=== PATIENT | male | born 1960 | race Caucasian/White ===

== ENCOUNTER 2018-09-29 20:04 | Inpatient (IN) | payer BC ==
[2018-09-29 22:22] LABS: ABS Basophils 0 10^3/ul (0-0.2); ABS Eosinophils 0.1 10^3/ul (0-0.6); ABS Lymphocytes 2.1 10^3/ul (1.0-4.8); ABS Monocytes 0.9 10^3/ul (0-0.8); ABS Neutrophils 13.9 10^3/ul (1.5-7.7); ABS Nucleated RBC 0 10^3/ul; Eosinophil % 0.5 %; Hematocrit 45 % (36-46); Hemoglobin 15.5 g/dL (14.0-18.0); Lymphocyte % 12.6 %; Mean Corpuscular HGB Conc 35 g/dL (31-36); Mean Corpuscular Hemoglobin 30 pg (27-31); Mean Corpuscular Volume 87 fL (80-94); Mean Platelet Volume 8.7 fL (7.4-10.4); Nucleated Red Blood Cells % 0; Platelet Count 216 10^3/uL (150-450); Red Blood Count 5.17 10^6 /uL (4.18-5.48); Red Cell Distribution Width 14 % (10.5-15)
[2018-09-29 22:38] LABS: Albumin 4.1 g/dL (3.2-5.2); Albumin/Globulin Ratio 1.4 (1-3); BUN/Creatinine Ratio 20.2 (8-20); C Reactive Protein 83.15 mg/L (<8.01); Calcium 8.9 mg/dL (8.6-10.3); EGFR African American 93.6 (>60); EGFR Non-African American 77.4 (>60); Potassium 3.4 mmol/L (3.5-5.0); Total Bilirubin 1.2 mg/dL (0.2-1.0); Total Protein 7.1 g/dL (6.4-8.9)
[2018-09-29] MEDS ORDERED: HYDROmorphone INJ1* 1 MG/ML SYRINGE IV SLOW PU ONE (23:28)
[2018-09-29] MEDS ORDERED: NS 0.9% 1000 ML** 1,000 ML IV ONE (23:29)
[2018-09-29] MEDS ORDERED: Metoclopramide IV* 5 MG/ML 2 ML VIAL IV SLOW PU ONE (23:29)
[2018-09-29] MEDS ORDERED: Iohexol 300* (CONTRAST) 10 ML SDV IV ONE (23:44)
--- NOTE | 2018-09-29 23:44 | ED ---
Abdominal Pain/Male - HPI Summary HPI Summary: A 58 y/o male presents to [facility] with a chief complaint of possible pancreatitis. The patient reports severe abdominal pain since the night of 09/28, and reports this is similar pain to when he had pancreatitis in 2014. He reports that there were no stones and was unsure why he had this condition. At triage he rated his pain as a 10/10 in severity. He describes the pain as sharp and reports that his pain radiates everywhere. He denies N/V/D, he just reports pain. He reports that he had a bowel resection for diverticulitis. He denies any smoking, drinking or drug use. He reports a Hx of hypothyroidism and HTN. He denies a Hx of DM. He reports that his pain has been getting better since being in the ED. Vital signs while in room HR: 86 bpm, O2 Sat: 96, BP: 148/86 - History of Current Complaint Chief Complaint: EDAbdPain Stated Complaint: "I THINK IM HAVING ACUTE PANCREATITIS" PER PT Time Seen by Provider: 09/29/18 23:27 Hx Obtained From: Patient Onset/Duration: Sudden Onset, Lasting Days, Still Present Timing: Constant, Lasting Days Severity Initially: Severe Severity Currently: Severe Pain Intensity: 10 Pain Scale Used: 0-10 Numeric Location: Diffuse Radiates: Yes Radiates to: Other - "everywhere" Character: Sharp Aggravating Factor(s): Nothing Alleviating Factor(s): Nothing Associated Signs And Symptoms: Negative: Fever, Nausea, Vomiting, Diarrhea - Allergies/Home Medications Allergies/Adverse Reactions: Allergies Allergy/AdvReac Type Severity Reaction Status Date / Time No Known Allergies Allergy Verified 08/02/13 07:20 Home Medications: Home Medications Aspirin [Aspir-Low] 81 mg PO DAILY 09/29/18 [History Confirmed 09/29/18] Chlorthalidone 25 mg PO DAILY 09/29/18 [History Confirmed 09/29/18] Levothyroxine Sodium [Synthroid] 100 mcg PO DAILY 09/29/18 [History Confirmed ] PMH/Surg Hx/FS Hx/Imm Hx Endocrine/Hematology History: Denies: Hx Diabetes Cardiovascular History: Reports: Hx Hypertension Denies: Hx Congestive Heart Failure GI History: Reports: Other GI Disorders - diverticulitis, resected colon, 2010, perf. bowel Musculoskeletal History: Reports: Other Musculoskeletal History - shouler surgery, bilat-dislocation, rotator cuff tears Sensory History: Reports: Hx Contacts or Glasses Opthamlomology History: Reports: Hx Contacts or Glasses - Surgical History Surgery Procedure, Year, and Place: shoulder, bowel resection x 2 Infectious Disease History: No Infectious Disease History: Denies: Traveled Outside the [place] in Last 30 Days - Family History Known Family History: Negative: Blood Disorder - Social History Alcohol Use: Rare Substance Use Type: Reports: None Review of Systems Negative: Fever Positive: Abdominal Pain. Negative: Vomiting, Diarrhea, Nausea All Other Systems Reviewed And Are Negative: Yes Physical Exam - Summary Physical Exam Summary: VITAL SIGNS: Reviewed. GENERAL: Patient is a well-developed and nourished MALE who is lying comfortable in the stretcher. Patient is not in any acute respiratory distress. HEAD AND FACE: No signs of trauma. No ecchymosis, hematomas or skull depressions. No sinus tenderness. EYES: PERRLA, EOMI x 2, No injected conjunctiva, no nystagmus. EARS: Hearing grossly intact. Ear canals and tympanic membranes are within normal limits. MOUTH: Oropharynx within normal limits. NECK: Supple, trachea is midline, no adenopathy, no JVD, no carotid bruit, no c- spine tenderness, neck with full ROM. CHEST: Symmetric, no tenderness at palpation LUNGS: Clear to auscultation bilaterally. No wheezing or crackles. CVS: Regular rate and rhythm, S1 and S2 present, no murmurs or gallops appreciated. ABDOMEN: Soft, non-tender. No signs of distention. No rebound no guarding, and no masses palpated. Bowel sounds are normal. EXTREMITIES: FROM in all major joints, no edema, no cyanosis or clubbing. NEURO: Alert and oriented x 3. No acute neurological deficits. Speech is normal and follows commands. SKIN: Dry and warm Triage Information Reviewed: Yes Vital Signs On Initial Exam: Initial Vitals Temp Pulse Resp BP Pulse Ox 98.1 F 74 20 143/95 98 09/29/18 20:22 09/29/18 20:22 09/29/18 20:22 09/29/18 20:22 09/29/18 20:22 Vital Signs Reviewed: Yes Diagnostics - Vital Signs Vital Signs Temp Pulse Resp BP Pulse Ox 09/29/18 23:35 24 09/29/18 23:26 75 23 153/101 97 03/18/19 23:25 21 09/29/18 21:37 77 20 121/95 97 09/29/18 20:22 98.1 F 74 20 143/95 98 - Laboratory Lab Results: Lab Results 09/29/18 09/29/18 09/29/18 Range/Units 22:14 22:15 22:15 WBC 17.0 H (3.5-10.8) 10^3/uL RBC 5.17 (4.18-5.48) 10^6 /uL Hgb 15.5 (14.0-18.0) g/dL Hct 45 (36-46) % MCV 87 (80-94) fL MCH 30 (27-31) pg MCHC 35 (31-36) g/dL RDW 14 (10.5-15) % Plt Count 216 (150-450) 10^3/uL MPV 8.7 (7.4-10.4) fL Neut % (Auto) 81.6 % Lymph % (Auto) 12.6 % [place]acken % (Auto) 5.0 % Eos % (Auto) 0.5 % Baso % (Auto) 0.3 % Absolute Neuts (auto) 13.9 H (1.5-7.7) 10^3/ul Absolute Lymphs (auto) 2.1 (1.0-4.8) 10^3/ul Absolute Monos (auto) 0.9 H (0-0.8) 10^3/ul Absolute Eos (auto) 0.1 (0-0.6) 10^3/ul Absolute Basos (auto) 0 (0-0.2) 10^3/ul Absolute Nucleated RBC 0 10^3/ul Nucleated RBC % 0 Sodium 132 L (135-145) mmol/L Potassium 3.4 L (3.5-5.0) mmol/L Chloride 94 L (101-111) mmol/L Carbon Dioxide 28 (22-32) mmol/L Anion Gap 10 (2-11) mmol/L BUN 20 (6-24) mg/dL Creatinine 0.99 (0.67-1.17) mg/dL Est GFR ( Amer) 93.6 (>60) Est GFR (Non-Af Amer) 77.4 (>60) BUN/Creatinine Ratio 20.2 H (8-20) Glucose 137 H (70-100) mg/dL Lactic Acid 1.2 (0.5-2.0) mmol/L Calcium 8.9 (8.6-10.3) mg/dL Total Bilirubin 1.20 H (0.2-1.0) mg/dL AST 20 (13-39) U/L ALT 20 (7-52) U/L Alkaline Phosphatase 52 (34-104) U/L C-Reactive Protein 83.15 H (<8.01) mg/L Total Protein 7.1 (6.4-8.9) g/dL Albumin 4.1 (3.2-5.2) g/dL Globulin 3.0 (2-4) g/dL Albumin/Globulin Ratio 1.4 (1-3) Lipase 2272 H (11.0-82.0) U/L Result Diagrams: 09/30/18 02:53 09/30/18 02:53 Lab Statement: Any lab studies that have been ordered have been reviewed, and results considered in the medical decision making process. - CT abdomen/pelvis CT Interpretation Completed By: Radiologist Summary of CT Findings: 1. Acute pancreatitis. 2. Small fat containing umbilical hernia. 3. Status post partial sigmoid resection surgery. 4. Colonic diverticulosis. ED physician has reviewed this imaging report. - EKG 21:39 Cardiac Rate: NL - 75 bpm EKG Rhythm: Sinus Rhythm Summary of EKG Findings: Normal sinus rhythm at 75 bpm. Nonspecific T-wave changes in inferior leads. Abdominal Pain Male Course/Dx - Course Course Of Treatment: A 58 y/o male presents to [facility] with a chief complaint of possible pancreatitis. The patient reports severe abdominal pain since the night of 09/28/18, and reports this is similar pain to when he had pancreatitis in 2014. He reports that there were no stones and was unsure why he had this condition. At triage he rated his pain as a 10/10 in severity. He describes the pain as sharp and reports that his pain radiates everywhere. He denies N/V/D, he just reports pain. He reports that he had a bowel resection for diverticulitis. He denies any smoking, drinking or drug use. He reports a Hx of hypothyroidism and HTN. He denies a Hx of DM. He reports that his pain has been getting better since being in the ED. The physical exam was unremarkable. In the ED course the patient was given Iohexol (contrast) IV, Dilaudid IV and Reglan IV. Abdomen/pelvis CT impression: 1. Acute pancreatitis. 2. Small fat containing umbilical hernia. 3. Status post partial sigmoid resection surgery. 4. Colonic diverticulosis. Bloodwork and chemistries obtained. Lipase elevated at 2272. Case discussed with Dr. Flower, hospitalist, who accpeted the patient for admission. The patient is agreeable with this plan. - Diagnoses Provider Diagnoses: Acute pancreatitis - Provider Notifications Discussed Care Of Patient With: Igor Flower Time Discussed With Above Provider: 01:48 Instructed by Provider To: Admit As Inpatient Discharge - Sign-Out/Discharge Documenting (check all that apply): Patient Departure - admit Patient Received Moderate/Deep Sedation with Procedure: No - Discharge Plan Condition: Fair Disposition: ADMITTED TO [facility] - Billing Disposition and Condition Condition: FAIR Disposition: Admitted to [facility] - Attestation Statements Document Initiated by Gina: Yes Documenting Scribe: Steve Dietrich Provider For Whom Gina is Documenting (Include Credential): Kelby Husain MD Scribe Attestation: Steve August scribed for Kelby Husain MD on 09/30/18 at 0616. Scribe Documentation Reviewed: Yes Provider Attestation: The documentation as recorded by the Steve bravo accurately reflects the service I personally performed and the decisions made by me, Kelyb Husain MD Status of Scribe Document: Viewed
[2018-09-30] MEDS ORDERED: HYDROmorphone INJ1* 1 MG/ML SYRINGE IV ONE (02:09)
[2018-09-30 03:05] LABS: ABS Basophils 0.1 10^3/ul (0-0.2); ABS Eosinophils 0.1 10^3/ul (0-0.6); ABS Lymphocytes 1.9 10^3/ul (1.0-4.8); ABS Monocytes 0.9 10^3/ul (0-0.8); ABS Neutrophils 13.6 10^3/ul (1.5-7.7); ABS Nucleated RBC 0 10^3/ul; Eosinophil % 0.5 %; Hematocrit 42 % (36-46); Hemoglobin 14.4 g/dL (14.0-18.0); Lymphocyte % 11.4 %; Mean Corpuscular HGB Conc 34 g/dL (31-36); Mean Corpuscular Hemoglobin 30 pg (27-31); Mean Corpuscular Volume 87 fL (80-94); Nucleated Red Blood Cells % 0; Platelet Count 192 10^3/uL (150-450); Red Blood Count 4.84 10^6 /uL (4.18-5.48); Red Cell Distribution Width 13 % (10.5-15); White Blood Count 16.6 10^3/uL (3.5-10.8)
[2018-09-30 03:18] LABS: Albumin 3.7 g/dL (3.2-5.2); Albumin/Globulin Ratio 1.4 (1-3); BUN/Creatinine Ratio 21.1 (8-20); Calcium 8.2 mg/dL (8.6-10.3); EGFR African American 104.5 (>60); EGFR Non-African American 86.4 (>60); Globulin 2.6 g/dL (2-4); HDL Cholesterol 44.9 mg/dL; Magnesium 1.7 mg/dL (1.9-2.7); Total Bilirubin 1.1 mg/dL (0.2-1.0); Total Protein 6.3 g/dL (6.4-8.9)
[2018-09-30] MEDS ORDERED: Magnesium Sulfate 2 GM IV* 2 GM/50 ML BAG IVPB ONE ×2 (03:33→08:28)
[2018-09-30] MEDS: Lactated Ringers 1000 ML Bag* 1,000 ML IV SCH ×3 (04:42→17:48)
[2018-09-30] MEDS: HYDROmorphone INJ1* 1 MG/ML SYRINGE IV SLOW PU PRN ×6 (05:00→20:17)
[2018-09-30] MEDS: Levothyroxine TAB* 100 MCG TAB PO SCH (06:06)
[2018-09-30] MEDS: KCL 20 MEQ/100 ML IVPREMIX* 20 MEQ/100 ML BAG IV SCH ×3 (06:07→15:01)
--- NOTE | 2018-09-30 06:07 | HP ---
HISTORY AND PHYSICAL: DATE OF ADMISSION: 09/30/18 ADMITTING PROVIDER: Igor Flower MD PRIMARY CARE PROVIDER: Dr. Coreas. CHIEF COMPLAINT: Abdominal pain (epigastric). HISTORY OF PRESENT ILLNESS: Erwin Andrade is a 58-year-old male with past medical history of hypertension; hypothyroidism; episode of pancreatitis in 2013 of undetermined etiology; severe diverticulosis & diverticulitis complicated by rupture, status post left hemicolectomy; morbid obesity (BMI of 40.6). He was in his usual state of health until 09/28/18, 2 nights prior to admission, at around 11 p.m. he started to develop a dull aching pain in his epigastric region that radiated to the left side of his abdomen and which felt very similar to his episode in 2013 of pancreatitis. He stopped eating most everything after that point except for some apple juice 09/29. Pain was progressively worse yesterday to the point of being "brutally" painful. He took Motrin 400 mg t.i.d. without relief, Zantac without relief and presented to [facility] Emergency Room yesterday, and while in the waiting room took another 400mg Motrin. Here, he had a CT abdomen and pelvis with IV contrast, which showed acute pancreatitis, a small fat containing umbilical hernia, status post partial sigmoid resection surgery and colonic diverticulosis and his lipase was elevated to 2272, CRP was 83, white count was 17.0. He was afebrile. He has received Dilaudid 1 mg IV x2 doses in the emergency room and 1 L of normal saline bolus. He was referred to hospitalist service for admission for acute pancreatitis of undermined etiology. He very rarely drinks alcohol at work social functions. PAST MEDICAL HISTORY: 1. Hypertension. 2. Obesity with BMI of 40.6. 3. Diverticulitis and diverticulosis, status post left hemicolectomy in 2008 to 2009 approximately. 4. Hypothyroidism. 5. Pancreatitis in 2013. MEDICATIONS: Include: 1. Aspirin 81 mg daily. 2. Lisinopril 40 mg daily. 3. Levothyroxine 100 mcg p.o. daily. 4. Chlorthalidone 25 mg p.o. daily. ALLERGIES: No known drug allergies. FAMILY HISTORY: His father from colon cancer at age 70, also had history of gallstones. Mother had a history of CVA, hypertension. Sister has hypothyroidism. SOCIAL HISTORY: The patient is a never smoker. He denies any significant alcohol use. He has a glass of wine extremely rarely with his work functions. 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 He does not do any other drugs. His , Miroslava, is his medical surrogate. He desires to be a full code. REVIEW OF SYSTEMS: Complete 14-point review of systems is negative except as per HPI. He denies any chest pain, shortness of breath, skin changes, dyspnea on exertion, headaches, nausea, vomiting, diarrhea, constipation, blood in his bowel movements, dark tarry bowel movements. His last colonoscopy was in the fall of 2017 that was clean (Through [employer] and likely Dr. Tena Pratt). PHYSICAL EXAMINATION GENERAL APPEARANCE: No acute distress. VITAL SIGNS: Temperature 98.1, heart rate 74, respiratory rate 20, satting 96% on room air, blood pressure 143/95. HEENT: Normocephalic, atraumatic. Pupils are equal, round, and reactive to light. Extraocular motions are intact. No scleral icterus. NECK: Supple. No cervical lymphadenopathy. LUNGS: Clear to auscultation bilaterally with no wheezing, rales, or rhonchi. CARDIOVASCULAR: Regular rate and rhythm. No murmurs, rubs, or gallops. ABDOMEN: Soft, mildly tender in the epigastric and left upper quadrant. Negative Matta's signs. No rebound, no guarding. EXTREMITIES: Warm, well perfused. No peripheral edema. SKIN: No lesions or rashes. NEURO: Cranial nerves II through XII intact. Moving all extremities. DIAGNOSTIC STUDIES/LAB DATA: White count 17.0, hemoglobin 15.5, hematocrit 45 , platelets 216. Sodium 132, potassium 3.4, chloride 94, BUN 20, creatinine 0.99, glucose 137. Lactic acid 1.2. Total bili 1.20, AST 20, ALT 20, alk phos 52. CRP 83.1. Albumin 4.1. Lipase 2272. Imaging: CT abdomen and pelvis with IV contrast demonstrated acute pancreatitis , small fat containing umbilical hernia, status post partial sigmoid resection surgery and colonic diverticulosis. EKG demonstrated normal sinus rhythm. T wave inversion in lead III, poor R wave progression, no ST elevations or depressions. ASSESSMENT AND PLAN: Erwin Andrade is a 58-year-old male with past medical history of episode of pancreatitis of undermined etiology, obesity with BMI of 40.6, hypertension, diverticulosis, is notably on chlorthalidone presenting with episode of acute pancreatitis with CT scan not showing any evidence of gallbladder pathology. 1. Acute Pancreatitis: Undetermined Etiology. His lipase is 2272. He has got 1 L of normal saline. I am going to put him on lactated Ringer's at 200 cc an hour for the next 10 hours at least. Control his pain with Dilaudid 1 mg IV q.3 hours. Put him n.p.o. to get an ultrasound of his right upper quadrant to further assess his gallbladder and to make sure the CT scan did not miss anything. It is possible that he passed a small stone transiently but further workup to rule out other causes of pancreatitis is warranted including rule out autoimmune pancreatitis. We will get a IgG4 level and CAROL. I will recheck his triglycerides - It was notably normal at 46 back on 07/28/13 during previous episode. I will hold his chlorthalidone, which is class III agent in terms of risk for development of drug-induced pancreatitis, which he has been on since 2008. Repeat a lipase and CBC and complete metabolic panel in the morning. 2. Hyperglycemia in setting of morbid obesity. He does have some hyperglycemia here to 137. I am going to check a hemoglobin A1c to rule out any development of prediabetes or diabetes. 3. Hypertension. As noted above hold his chlorthalidone. He is normotensive here and at risk for third spacing fluid in setting of pancreatitis. We will monitor his BPs closely and add back his home lisinopril as needed. 4. Hypothyroidism. Continue levothyroxine. Follow up on his UA, which has been ordered. He is nontoxic appearing. He is being admitted as inpatient status. He is a full code. Medical surrogate is his , Miroslava Andrade. He has had gastroenterology consultation in the past back in [address] Caal. We could consider same again depending on clinical course. [id number]/[facility] #: [id number] [facility]
[2018-09-30 08:09] LABS: Urine Appearance Clear; Urine Bacteria Absent (Absent); Urine Bilirubin Negative (Negative); Urine Blood 2+ (Negative); Urine Color Yellow; Urine Glucose Negative (Negative); Urine Ketones 1+ (Negative); Urine Nitrite Negative (Negative); Urine Protein Negative (Negative); Urine Red Blood Cell 3+(>10/hpf) (Absent); Urine Specific Gravity 1.035 (1.010-1.030); Urine Urobilinogen Negative (Negative); Urine White Blood Cell Trace(0-5/hpf) (Absent)
[2018-09-30] MEDS ORDERED: KCL 20 MEQ/100 ML IVPREMIX* 20 MEQ/100 ML BAG IV SCH (09:00)
[2018-09-30] MEDS: Aspirin EC TAB* 81 MG TAB.EC PO SCH (11:21)
[2018-09-30] MEDS: Ondansetron INJ* 2 MG/ML VIAL IV PRN ×2 (11:51→20:18)
--- NOTE | 2018-09-30 16:09 | PN ---
Subjective Date of Service: 09/30/18 Interval History: Pt states that he is feeling better. He has mid-epigastric and LUQ pain. His pain is well-controlled Dilauded; he rates it at 1-2/10. He states that meds start to wear off appx 30min before his next dose is due. He has had no food since Saturday, 5pm when the pain started. Saturday pain got worse and he went to ER. he had pancreatitis once before in 2013, etiology unknown. Pt denies recent alcohol use. Currently, pt denies vomiting, diarrhea. He is occasionally nauseas. Denies cough, fever, changes in urination or bowl movements. Objective Active Medications: Aspirin (Aspirin Ec Tab*) 81 mg PO DAILY SCHn Hydromorphone HCl (Dilaudid Inj1s*) 1 mg IV SLOW PU Q3H PRN Lactated Ringer's (Lactated Ringers 1000 Ml Bag*) 1,000 mls @ 125 mls/hr IV PER RATE KATHIA Levothyroxine Sodium (Synthroid Tab*) 100 mcg PO 0600 KATHIA Ondansetron HCl (Zofran Inj*) 4 mg IV Q8H PRN Vital Signs: Temp Pulse Resp BP Pulse Ox 99.0 F 80 15 133/77 96 09/30/18 11:00 09/30/18 11:00 09/30/18 15:48 09/30/18 11:00 09/30/18 11:00 Oxygen Devices in Use Now: None Appearance: Pt is laying flat in bed. He appears comfortable and in no acute distress. Eyes: No Scleral Icterus, PERRLA Ears/Nose/Mouth/Throat: NL Teeth, Lips, Gums, Mucous Membranes Moist Neck: NL Appearance and Movements; NL JVP, Trachea Midline Respiratory: Symmetrical Chest Expansion and Respiratory Effort, Clear to Auscultation Cardiovascular: NL Sounds; No Murmurs; No JVD, RRR, No Edema Abdominal: - - Midline colectomy scar below umbilicus intact. Abdomen nondistended without Frankie's, Meza Ceja signs. BS hypoactive in all quadrants. Abdomen is tender to palpation at epigastric and LUQ. Lymphatic: No Cervical Adenopathy Extremities: No Edema, No Clubbing, Cyanosis Neurological: Alert and Oriented x 3 Result Diagrams: 09/30/18 02:53 09/30/18 02:53 Additional Lab and Data: Lab Results 09/29/18 09/29/18 09/29/18 Range/Units 22:14 22:15 22:15 WBC 17.0 H (3.5-10.8) 10^3/uL RBC 5.17 (4.18-5.48) 10^6 /uL Hgb 15.5 (14.0-18.0) g/dL Hct 45 (36-46) % MCV 87 (80-94) fL MCH 30 (27-31) pg MCHC 35 (31-36) g/dL RDW 14 (10.5-15) % Plt Count 216 (150-450) 10^3/uL MPV 8.7 (7.4-10.4) fL Neut % (Auto) 81.6 % Lymph % (Auto) 12.6 % [place]osh[place] % (Auto) 5.0 % Eos % (Auto) 0.5 % Baso % (Auto) 0.3 % Absolute Neuts (auto) 13.9 H (1.5-7.7) 10^3/ul Absolute Lymphs (auto) 2.1 (1.0-4.8) 10^3/ul Absolute Monos (auto) 0.9 H (0-0.8) 10^3/ul Absolute Eos (auto) 0.1 (0-0.6) 10^3/ul Absolute Basos (auto) 0 (0-0.2) 10^3/ul Absolute Nucleated RBC 0 10^3/ul Nucleated RBC % 0 Sodium 132 L (135-145) mmol/L Potassium 3.4 L (3.5-5.0) mmol/L Chloride 94 L (101-111) mmol/L Carbon Dioxide 28 (22-32) mmol/L Anion Gap 10 (2-11) mmol/L BUN 20 (6-24) mg/dL Creatinine 0.99 (0.67-1.17) mg/dL Est GFR ( Amer) 93.6 (>60) Est GFR (Non-Af Amer) 77.4 (>60) BUN/Creatinine Ratio 20.2 H (8-20) Glucose 137 H (70-100) mg/dL Lactic Acid 1.2 (0.5-2.0) mmol/L Calcium 8.9 (8.6-10.3) mg/dL Total Bilirubin 1.20 H (0.2-1.0) mg/dL AST 20 (13-39) U/L ALT 20 (7-52) U/L Alkaline Phosphatase 52 (34-104) U/L C-Reactive Protein 83.15 H (<8.01) mg/L Total Protein 7.1 (6.4-8.9) g/dL Albumin 4.1 (3.2-5.2) g/dL Globulin 3.0 (2-4) g/dL Albumin/Globulin Ratio 1.4 (1-3) Lipase 2272 H (11.0-82.0) U/L Assess/Plan/Problems-Billing Assessment: Pt is a 58 yom with PMHx obesity, HTN, diverticulitis/losis s/p L hemicolectomy , hypothyroid who presented to ER with pancreatitis, unknown etiology. - Patient Problems (1) Pancreatitis Comment: -Abd pain well controlled with current medications -Leukocytosis without fever or other s/s infection, ? third spacing; continue to monitor -Lipids WNL, pending IGG4, CAROL -Zofran prn nausea -Continue IVF, dilaudid (2) Electrolyte abnormality Comment: -K and Mg repleted -EKG shows NSR with borderline T abnormalities; pt asymptomatic -Continue to monitor (3) Hyperglycemia Comment: -HA1C 6.5 -Pt would like diabetic education (ordered) for management and refuses metformin at this time (4) Hypertension Comment: -Normotensive -Home medication Chlorthalidone held, d/t Class III agent risk for pancreatitis -Continue home med Losartan if needed (5) Hypothyroid Comment: -Continue levothyroxine (6) DVT prophylaxis Comment: -TEDs ordered (7) Full code status Status and Disposition: Inpatient. Discharge when stable.
[2018-09-30] MEDS: Acetaminophen TAB* 325 MG PO PRN (20:18)
[2018-10-01] MEDS: HYDROmorphone INJ1* 1 MG/ML SYRINGE IV SLOW PU PRN ×10 (01:21→22:36)
[2018-10-01] MEDS: Lactated Ringers 1000 ML Bag* 1,000 ML IV SCH ×3 (01:55→16:37)
[2018-10-01] MEDS: Ondansetron INJ* 2 MG/ML VIAL IV PRN (03:39)
[2018-10-01] MEDS: Levothyroxine TAB* 100 MCG TAB PO SCH (06:02)
[2018-10-01 06:42] LABS: Hematocrit 41 % (36-46); Hemoglobin 14.1 g/dL (14.0-18.0); Mean Corpuscular HGB Conc 34 g/dL (31-36); Mean Corpuscular Hemoglobin 30 pg (27-31); Mean Corpuscular Volume 87 fL (80-94); Mean Platelet Volume 8.1 fL (7.4-10.4); Platelet Count 171 10^3/uL (150-450); Red Blood Count 4.73 10^6 /uL (4.18-5.48); Red Cell Distribution Width 14 % (10.5-15); White Blood Count 23.1 10^3/uL (3.5-10.8)
[2018-10-01 07:05] LABS: BUN/Creatinine Ratio 19.5 (8-20); Calcium 7.7 mg/dL (8.6-10.3); EGFR African American 108.7 (>60); EGFR Non-African American 89.8 (>60); Magnesium 1.8 mg/dL (1.9-2.7); Potassium 3.2 mmol/L (3.5-5.0)
[2018-10-01] MEDS ORDERED: Lactated Ringers 1000 ML Bag* 1,000 ML IV SCH (08:14)
[2018-10-01 08:34] LABS: ABS Basophils 0.1 10^3/ul (0-0.2); ABS Eosinophils 0.1 10^3/ul (0-0.6); ABS Monocytes 1.8 10^3/ul (0-0.8); ABS Neutrophils 20.1 10^3/ul (1.5-7.7)
[2018-10-01 08:37] LABS: Albumin 3.5 g/dL (3.2-5.2); Albumin/Globulin Ratio 1.4 (1-3); Globulin 2.5 g/dL (2-4); Indirect Bilirubin 0.7 mg/dL (0.3-1.0); Total Bilirubin 1.1 mg/dL (0.2-1.0)
[2018-10-01 08:39] LABS: Immature Granulocytes 5 % (0-9); Lymphocytes % 4 %; Monocytes % 11 %; Neutrophil % 79 %; Variant Lymph % 1 % (0-6)
[2018-10-01 08:47] LABS: ABS Neutrophils 19.4 10^3/ul (1.5-7.7)
[2018-10-01] MEDS: Aspirin EC TAB* 81 MG TAB.EC PO SCH (09:06)
[2018-10-01] MEDS: KCL 20 MEQ/100 ML IVPREMIX* 20 MEQ/100 ML BAG IV SCH ×3 (09:06→17:41)
[2018-10-01] MEDS: Ciprofloxacin 400MG IVPREMIX(* 400 MG/200 ML BAG IVPB SCH ×2 (11:30→22:29)
[2018-10-01] MEDS: metroNIDAZOLE IV 500 MG/100ML* 500 MG/100 ML BAG IVPB SCH ×2 (12:47→18:29)
[2018-10-01] MEDS: PROCHLORPERAZINE INJ 5 MG/ML 2 ML VIAL IV PRN ×2 (14:08→20:32)
--- NOTE | 2018-10-01 15:43 | PN ---
Subjective Date of Service: 10/01/18 Interval History: Pt states that he continues to have abdominal pain, but is doing ok. States pain starts to worsen right before pain medication is due, and he is requiring pain medication every time it is due. He states that his urine output is average. He denies recent BM. He does c/o occasional productive cough, but states that this only occurs in the a.m. Torrington's score is 3 with 15% predicted mortality BISAP score 0 with <1% risk of mortality Objective Active Medications: Acetaminophen (Tylenol Tab*) 650 mg PO Q6H PRN Aspirin (Aspirin Ec Tab*) 81 mg PO DAILY [facility] Docusate Sodium (Colace Cap*) 100 mg PO BID PRN Hydromorphone HCl (Dilaudid Inj1s*) 1 mg IV SLOW PU Q2H PRN Lactated Ringer's (Lactated Ringers 1000 Ml Bag*) 1,000 mls @ 200 mls/hr IV PER RATE [facility] Ciprofloxacin/Dextrose (Cipro 400 Mg Ivpremix(*)) 400 mg in 200 mls @ 200 mls/ hr IVPB Q12H [facility] Metronidazole/Sodium Chloride (Flagyl 500 Mg Ivpb*) 500 mg in 100 mls @ 100 mls /hr IVPB Q8H [facility] Levothyroxine Sodium (Synthroid Tab*) 100 mcg PO 0600 [facility] Prochlorperazine Edisylate (Compazine Inj*) 2.5 mg IV Q6H PRN Senna (Senokot Tab*) 1 tab PO DAILY PRN Vital Signs: Temp Pulse Resp BP Pulse Ox 99.4 F 85 18 131/96 98 10/01/18 15:21 10/01/18 15:21 10/01/18 15:21 10/01/18 15:21 10/01/18 15:21 Oxygen Devices in Use Now: None Appearance: Pt is laying in bed. He does not appear acutely ill, and he is in no acute distress. Eyes: No Scleral Icterus, PERRLA Ears/Nose/Mouth/Throat: NL Teeth, Lips, Gums, - - Mucous membranes dry Neck: NL Appearance and Movements; NL JVP, Trachea Midline Respiratory: Symmetrical Chest Expansion and Respiratory Effort, Clear to Auscultation, - - Without wheeze, rales, rhonchi Cardiovascular: NL Sounds; No Murmurs; No JVD, RRR, No Edema Abdominal: No Hepatosplenomegaly, - - BS in all quadrants; negative for ella's , arriaga salazar signs; epigastric and LUQ TTP. Without distension Extremities: No Edema, No Clubbing, Cyanosis Neurological: Alert and Oriented x 3 Result Diagrams: 10/01/18 06:34 10/01/18 06:34 Additional Lab and Data: Lab Results 09/29/18 09/29/18 09/29/18 Range/Units 22:14 22:15 22:15 WBC 17.0 H (3.5-10.8) 10^3/uL RBC 5.17 (4.18-5.48) 10^6 /uL Hgb 15.5 (14.0-18.0) g/dL Hct 45 (36-46) % MCV 87 (80-94) fL MCH 30 (27-31) pg MCHC 35 (31-36) g/dL RDW 14 (10.5-15) % Plt Count 216 (150-450) 10^3/uL MPV 8.7 (7.4-10.4) fL Neut % (Auto) 81.6 % Lymph % (Auto) 12.6 % [place] % (Auto) 5.0 % Eos % (Auto) 0.5 % Baso % (Auto) 0.3 % Absolute Neuts (auto) 13.9 H (1.5-7.7) 10^3/ul Absolute Lymphs (auto) 2.1 (1.0-4.8) 10^3/ul Absolute Monos (auto) 0.9 H (0-0.8) 10^3/ul Absolute Eos (auto) 0.1 (0-0.6) 10^3/ul Absolute Basos (auto) 0 (0-0.2) 10^3/ul Absolute Nucleated RBC 0 10^3/ul Nucleated RBC % 0 Sodium 132 L (135-145) mmol/L Potassium 3.4 L (3.5-5.0) mmol/L Chloride 94 L (101-111) mmol/L Carbon Dioxide 28 (22-32) mmol/L Anion Gap 10 (2-11) mmol/L BUN 20 (6-24) mg/dL Creatinine 0.99 (0.67-1.17) mg/dL Est GFR ( Amer) 93.6 (>60) Est GFR (Non-Af Amer) 77.4 (>60) BUN/Creatinine Ratio 20.2 H (8-20) Glucose 137 H (70-100) mg/dL Lactic Acid 1.2 (0.5-2.0) mmol/L Calcium 8.9 (8.6-10.3) mg/dL Total Bilirubin 1.20 H (0.2-1.0) mg/dL AST 20 (13-39) U/L ALT 20 (7-52) U/L Alkaline Phosphatase 52 (34-104) U/L C-Reactive Protein 83.15 H (<8.01) mg/L Total Protein 7.1 (6.4-8.9) g/dL Albumin 4.1 (3.2-5.2) g/dL Globulin 3.0 (2-4) g/dL Albumin/Globulin Ratio 1.4 (1-3) Lipase 2272 H (11.0-82.0) U/L Microbiology and Other Data: Microbiology 09/30/18 07:50 Urine Culture - Final Urine No Growth (<1,000 CFU/mL) Assess/Plan/Problems-Billing Assessment: Pt is a 58 yom with PMHx obesity, HTN, diverticulitis/losis s/p L hemicolectomy , hypothyroid who presented to ER with pancreatitis, unknown etiology. - Patient Problems (1) Pancreatitis Comment: -Abd pain controlled with current medications -Leukocytosis plus intermittend low grade fever; starting Cipro + Flagyl 2018 -Lipids WNL, pending IGG4, CAROL -Zofran d/c'd d/t assoc with QT prolongation with use of Cipro and Zofran plus frequent hypokalemia. Compazine prn nausea -Continue IVF at 200cc/h, dilaudid (2) Electrolyte abnormality Comment: -K and Mg repleted -EKG shows NSR with borderline T abnormalities 09/30/2018; pt asymptomatic -Continue to monitor (3) Constipation Comment: -Pt c/o constipation today, requesting rx -Colace, Senna ordered (4) Hypertension Comment: -Normotensive with SBP 120-130's -Home medication Chlorthalidone held, d/t Class III agent risk for pancreatitis -Continue home med Losartan if needed (5) Hyperglycemia Comment: -HA1C 6.5 -Pt would like diabetic education (ordered) for management and refuses metformin at this time (6) Hypothyroid Comment: -Continue levothyroxine (7) DVT prophylaxis Comment: -TEDs ordered (8) Full code status Status and Disposition: Inpatient. Discharge when stable.
[2018-10-01] MEDS: Docusate CAP* 100 MG PO PRN ×3 (16:31→20:32)
[2018-10-01] MEDS: Senna TAB PO PRN ×2 (16:31→16:34)
[2018-10-01] MEDS: Acetaminophen TAB* 325 MG PO PRN (20:28)
[2018-10-02] MEDS: HYDROmorphone INJ1* 1 MG/ML SYRINGE IV SLOW PU PRN ×9 (00:53→21:46)
[2018-10-02] MEDS: metroNIDAZOLE IV 500 MG/100ML* 500 MG/100 ML BAG IVPB SCH ×2 (01:00→10:57)
[2018-10-02] MEDS: PROCHLORPERAZINE INJ 5 MG/ML 2 ML VIAL IV PRN (02:27)
[2018-10-02] MEDS: Levothyroxine TAB* 100 MCG TAB PO SCH (05:09)
[2018-10-02 06:41] LABS: Hematocrit 38 % (36-46); Hemoglobin 12.9 g/dL (14.0-18.0); Mean Corpuscular HGB Conc 34 g/dL (31-36); Mean Corpuscular Hemoglobin 30 pg (27-31); Mean Corpuscular Volume 89 fL (80-94); Mean Platelet Volume 8.9 fL (7.4-10.4); Platelet Count 155 10^3/uL (150-450); Red Blood Count 4.32 10^6 /uL (4.18-5.48); Red Cell Distribution Width 13 % (10.5-15); White Blood Count 22.6 10^3/uL (3.5-10.8)
[2018-10-02 06:42] LABS: ABS Basophils 0 10^3/ul (0-0.2); ABS Eosinophils 0.1 10^3/ul (0-0.6); ABS Lymphocytes 0.9 10^3/ul (1.0-4.8); ABS Neutrophils 19.6 10^3/ul (1.5-7.7); ABS Nucleated RBC 0 10^3/ul; Eosinophil % 0.4 %; Lymphocyte % 4.2 %; Nucleated Red Blood Cells % 0
[2018-10-02 06:47] LABS: Albumin 3.1 g/dL (3.2-5.2); Albumin/Globulin Ratio 1.2 (1-3); Calcium 7.5 mg/dL (8.6-10.3); EGFR African American 107.3 (>60); EGFR Non-African American 88.6 (>60); Globulin 2.5 g/dL (2-4); Magnesium 1.8 mg/dL (1.9-2.7); Potassium 3.3 mmol/L (3.5-5.0); Total Bilirubin 1.1 mg/dL (0.2-1.0); Total Protein 5.6 g/dL (6.4-8.9)
[2018-10-02] MEDS: Aspirin EC TAB* 81 MG TAB.EC PO SCH (08:28)
[2018-10-02] MEDS: Ciprofloxacin 400MG IVPREMIX(* 400 MG/200 ML BAG IVPB SCH (10:18)
[2018-10-02] MEDS: Lactated Ringers 1000 ML Bag* 1,000 ML IV SCH ×3 (12:45→21:50)
[2018-10-02] MEDS: KCL 20 MEQ/100 ML IVPREMIX* 20 MEQ/100 ML BAG IV SCH ×2 (12:45→16:55)
--- NOTE | 2018-10-02 16:09 | PN ---
Subjective Date of Service: 10/02/18 Interval History: Feels better since admission but abdominal pain continues small BM and +flatus no N/V not OOB yet Objective Active Medications: Acetaminophen (Tylenol Tab*) 650 mg PO Q6H PRN PRN Reason: FEVER Last Admin: 10/01/18 20:28 Dose: 650 mg Aspirin (Aspirin Ec Tab*) 81 mg PO DAILY [facility] Last Admin: 10/02/18 08:28 Dose: 81 mg Docusate Sodium (Colace Cap*) 100 mg PO BID PRN PRN Reason: CONSTIPATION Last Admin: 10/01/18 16:34 Dose: 100 mg Hydromorphone HCl (Dilaudid Inj1s*) 1 mg IV SLOW PU Q2H PRN PRN Reason: PAIN Last Admin: 10/02/18 15:29 Dose: 1 mg Lactated Ringer's (Lactated Ringers 1000 Ml Bag*) 1,000 mls @ 200 mls/hr IV PER RATE [facility] Last Admin: 10/02/18 12:45 Dose: 200 mls/hr Levothyroxine Sodium (Synthroid Tab*) 100 mcg PO 0600 [facility] Last Admin: 10/02/18 05:09 Dose: 100 mcg Prochlorperazine Edisylate (Compazine Inj*) 2.5 mg IV Q6H PRN PRN Reason: NAUSEA/VOMITING Last Admin: 10/02/18 02:27 Dose: 2.5 mg Senna (Senokot Tab*) 1 tab PO DAILY PRN PRN Reason: CONSTIPATION Last Admin: 10/01/18 16:34 Dose: 1 tab Vital Signs - 8 hr 10/02/18 10/02/18 10/02/18 08:22 08:28 08:45 Temperature 98.9 F Pulse Rate 93 Respiratory 16 16 16 Rate Blood Pressure 134/72 (mmHg) O2 Sat by Pulse 88 Oximetry 10/02/18 10/02/18 10/02/18 10:29 11:29 11:30 Temperature 98.7 F Pulse Rate 91 Respiratory 16 16 16 Rate Blood Pressure 126/68 (mmHg) O2 Sat by Pulse 91 Oximetry 10/02/18 10/02/18 10/02/18 12:50 13:57 15:29 Temperature Pulse Rate Respiratory 16 16 16 Rate Blood Pressure (mmHg) O2 Sat by Pulse Oximetry Oxygen Devices in Use Now: None Appearance: lying flat, NAD Eyes: No Scleral Icterus Ears/Nose/Mouth/Throat: NL Teeth, Lips, Gums, Clear Oropharnyx Neck: NL Appearance and Movements; NL JVP, Trachea Midline Respiratory: Symmetrical Chest Expansion and Respiratory Effort, Clear to Auscultation Cardiovascular: RRR Abdominal: - - mild distention, mild TTP epigastrum Extremities: No Edema Skin: No Rash or Ulcers Neurological: Alert and Oriented x 3 Result Diagrams: 10/02/18 05:58 10/02/18 05:58 Additional Lab and Data: Lab Results 09/29/18 09/29/18 09/29/18 Range/Units 22:14 22:15 22:15 WBC 17.0 H (3.5-10.8) 10^3/uL RBC 5.17 (4.18-5.48) 10^6 /uL Hgb 15.5 (14.0-18.0) g/dL Hct 45 (36-46) % MCV 87 (80-94) fL MCH 30 (27-31) pg MCHC 35 (31-36) g/dL RDW 14 (10.5-15) % Plt Count 216 (150-450) 10^3/uL MPV 8.7 (7.4-10.4) fL Neut % (Auto) 81.6 % Lymph % (Auto) 12.6 % [place] % (Auto) 5.0 % Eos % (Auto) 0.5 % Baso % (Auto) 0.3 % Absolute Neuts (auto) 13.9 H (1.5-7.7) 10^3/ul Absolute Lymphs (auto) 2.1 (1.0-4.8) 10^3/ul Absolute Monos (auto) 0.9 H (0-0.8) 10^3/ul Absolute Eos (auto) 0.1 (0-0.6) 10^3/ul Absolute Basos (auto) 0 (0-0.2) 10^3/ul Absolute Nucleated RBC 0 10^3/ul Nucleated RBC % 0 Sodium 132 L (135-145) mmol/L Potassium 3.4 L (3.5-5.0) mmol/L Chloride 94 L (101-111) mmol/L Carbon Dioxide 28 (22-32) mmol/L Anion Gap 10 (2-11) mmol/L BUN 20 (6-24) mg/dL Creatinine 0.99 (0.67-1.17) mg/dL Est GFR ( Amer) 93.6 (>60) Est GFR (Non-Af Amer) 77.4 (>60) BUN/Creatinine Ratio 20.2 H (8-20) Glucose 137 H (70-100) mg/dL Lactic Acid 1.2 (0.5-2.0) mmol/L Calcium 8.9 (8.6-10.3) mg/dL Total Bilirubin 1.20 H (0.2-1.0) mg/dL AST 20 (13-39) U/L ALT 20 (7-52) U/L Alkaline Phosphatase 52 (34-104) U/L C-Reactive Protein 83.15 H (<8.01) mg/L Total Protein 7.1 (6.4-8.9) g/dL Albumin 4.1 (3.2-5.2) g/dL Globulin 3.0 (2-4) g/dL Albumin/Globulin Ratio 1.4 (1-3) Lipase 2272 H (11.0-82.0) U/L Microbiology and Other Data: Microbiology 09/30/18 07:50 Urine Culture - Final Urine No Growth (<1,000 CFU/mL) Assess/Plan/Problems-Billing Assessment: Pt is a 58 yom with PMHx obesity, HTN, diverticulitis s/p L hemicolectomy, hypothyroid who presented to ER with pancreatitis - Patient Problems (1) Pancreatitis Comment: NPO, pain control with dilaudid and c/w LR at 200cc replete potassium stop abx - elevated wbc and fever common in pancreatitis unclear etiology other than possible effect from chlorthalidone last episode took 10 days to resolve (2) Hypertension Comment: -Home medication Chlorthalidone held, d/t Class III agent risk for pancreatitis -holding Losartan while normotensive (3) Hypothyroid Comment: -Continue levothyroxine (4) DVT prophylaxis Comment: HSQ Status and Disposition: Inpatient. Discharge when stable.
[2018-10-02] MEDS: Heparin VIAL(*) 5000 UNITS/ML VIAL (FIVE THOUSAND) SUBCUT SCH (23:28)
[2018-10-03] MEDS: HYDROmorphone INJ1* 1 MG/ML SYRINGE IV SLOW PU PRN ×8 (00:07→23:53)
[2018-10-03] MEDS: Lactated Ringers 1000 ML Bag* 1,000 ML IV SCH ×3 (03:03→16:14)
[2018-10-03] MEDS: Levothyroxine TAB* 100 MCG TAB PO SCH (05:48)
[2018-10-03] MEDS: Heparin VIAL(*) 5000 UNITS/ML VIAL (FIVE THOUSAND) SUBCUT SCH ×3 (05:48→21:18)
[2018-10-03 07:47] LABS: ABS Basophils 0 10^3/ul (0-0.2); ABS Eosinophils 0.4 10^3/ul (0-0.6); ABS Lymphocytes 1.1 10^3/ul (1.0-4.8); ABS Monocytes 1.5 10^3/ul (0-0.8); ABS Neutrophils 15.1 10^3/ul (1.5-7.7); ABS Nucleated RBC 0 10^3/ul; Eosinophil % 2.1 %; Hematocrit 37 % (36-46); Hemoglobin 12.5 g/dL (14.0-18.0); Lymphocyte % 6.2 %; Mean Corpuscular HGB Conc 34 g/dL (31-36); Mean Corpuscular Hemoglobin 30 pg (27-31); Mean Corpuscular Volume 88 fL (80-94); Mean Platelet Volume 8.5 fL (7.4-10.4); Nucleated Red Blood Cells % 0; Platelet Count 160 10^3/uL (150-450); Red Blood Count 4.18 10^6 /uL (4.18-5.48); Red Cell Distribution Width 13 % (10.5-15); White Blood Count 18.1 10^3/uL (3.5-10.8)
[2018-10-03 08:03] LABS: Albumin 2.9 g/dL (3.2-5.2); Albumin/Globulin Ratio 1.1 (1-3); BUN/Creatinine Ratio 17.6 (8-20); Calcium 7.7 mg/dL (8.6-10.3); EGFR Non-African American 108.3 (>60); Globulin 2.6 g/dL (2-4); Indirect Bilirubin 0.5 mg/dL (0.3-1.0); Total Bilirubin 0.8 mg/dL (0.2-1.0); Total Protein 5.5 g/dL (6.4-8.9)
[2018-10-03] MEDS: Aspirin EC TAB* 81 MG TAB.EC PO SCH (09:30)
[2018-10-03] MEDS: PROCHLORPERAZINE INJ 5 MG/ML 2 ML VIAL IV PRN ×2 (10:10→21:10)
[2018-10-03] MEDS: KCL 20 MEQ/100 ML IVPREMIX* 20 MEQ/100 ML BAG IV SCH ×3 (11:07→21:15)
--- NOTE | 2018-10-03 15:56 | PN ---
Subjective Date of Service: 10/03/18 Interval History: Pain present but improving, ambulated today No N/V no Objective Active Medications: Acetaminophen (Tylenol Tab*) 650 mg PO Q6H PRN PRN Reason: FEVER Last Admin: 10/01/18 20:28 Dose: 650 mg Aspirin (Aspirin Ec Tab*) 81 mg PO DAILY [facility] Last Admin: 10/03/18 09:30 Dose: Not Given Docusate Sodium (Colace Cap*) 100 mg PO BID PRN PRN Reason: CONSTIPATION Last Admin: 10/01/18 16:34 Dose: 100 mg Heparin Sodium (Porcine) (Heparin Vial(*)) 5,000 units SUBCUT Q8HR [facility] Last Admin: 10/03/18 13:57 Dose: 5,000 units Hydromorphone HCl (Dilaudid Inj1s*) 1 mg IV SLOW PU Q2H PRN PRN Reason: PAIN Last Admin: 10/03/18 13:56 Dose: 1 mg Lactated Ringer's (Lactated Ringers 1000 Ml Bag*) 1,000 mls @ 200 mls/hr IV PER RATE [facility] Last Admin: 10/03/18 09:23 Dose: 200 mls/hr Potassium Chloride (Potassium Chloride 20 Meq/100 Ml Ivpremix*) 20 meq in 100 mls @ 50 mls/hr IV Q2H [facility] Stop: 10/03/18 16:59 Last Admin: 10/03/18 11:07 Dose: 25 mls/hr Levothyroxine Sodium (Synthroid Tab*) 100 mcg PO 0600 [facility] Last Admin: 10/03/18 05:48 Dose: 100 mcg Prochlorperazine Edisylate (Compazine Inj*) 2.5 mg IV Q6H PRN PRN Reason: NAUSEA/VOMITING Last Admin: 10/03/18 10:10 Dose: 2.5 mg Senna (Senokot Tab*) 1 tab PO DAILY PRN PRN Reason: CONSTIPATION Last Admin: 10/01/18 16:34 Dose: 1 tab Vital Signs - 8 hr 10/03/18 10/03/18 10/03/18 08:24 08:30 10:00 Temperature 99 F Pulse Rate 89 Respiratory 16 18 16 Rate Blood Pressure 150/81 (mmHg) O2 Sat by Pulse 92 Oximetry 10/03/18 10/03/18 10/03/18 11:12 11:15 12:47 Temperature 98.6 F Pulse Rate 93 Respiratory 16 16 16 Rate Blood Pressure 144/74 (mmHg) O2 Sat by Pulse 95 Oximetry 10/03/18 13:56 Temperature Pulse Rate Respiratory 20 Rate Blood Pressure (mmHg) O2 Sat by Pulse Oximetry Oxygen Devices in Use Now: None Appearance: lying flat, NAD Eyes: No Scleral Icterus Ears/Nose/Mouth/Throat: NL Teeth, Lips, Gums, Clear Oropharnyx Neck: NL Appearance and Movements; NL JVP, Trachea Midline Respiratory: Symmetrical Chest Expansion and Respiratory Effort, Clear to Auscultation Cardiovascular: RRR Abdominal: - - TTP epigatsrum, mild distention Skin: No Rash or Ulcers Neurological: Alert and Oriented x 3 Result Diagrams: 10/03/18 07:24 10/03/18 07:24 Additional Lab and Data: Lab Results 09/29/18 09/29/18 09/29/18 Range/Units 22:14 22:15 22:15 WBC 17.0 H (3.5-10.8) 10^3/uL RBC 5.17 (4.18-5.48) 10^6 /uL Hgb 15.5 (14.0-18.0) g/dL Hct 45 (36-46) % MCV 87 (80-94) fL MCH 30 (27-31) pg MCHC 35 (31-36) g/dL RDW 14 (10.5-15) % Plt Count 216 (150-450) 10^3/uL MPV 8.7 (7.4-10.4) fL Neut % (Auto) 81.6 % Lymph % (Auto) 12.6 % [place] % (Auto) 5.0 % Eos % (Auto) 0.5 % Baso % (Auto) 0.3 % Absolute Neuts (auto) 13.9 H (1.5-7.7) 10^3/ul Absolute Lymphs (auto) 2.1 (1.0-4.8) 10^3/ul Absolute Monos (auto) 0.9 H (0-0.8) 10^3/ul Absolute Eos (auto) 0.1 (0-0.6) 10^3/ul Absolute Basos (auto) 0 (0-0.2) 10^3/ul Absolute Nucleated RBC 0 10^3/ul Nucleated RBC % 0 Sodium 132 L (135-145) mmol/L Potassium 3.4 L (3.5-5.0) mmol/L Chloride 94 L (101-111) mmol/L Carbon Dioxide 28 (22-32) mmol/L Anion Gap 10 (2-11) mmol/L BUN 20 (6-24) mg/dL Creatinine 0.99 (0.67-1.17) mg/dL Est GFR ( Amer) 93.6 (>60) Est GFR (Non-Af Amer) 77.4 (>60) BUN/Creatinine Ratio 20.2 H (8-20) Glucose 137 H (70-100) mg/dL Lactic Acid 1.2 (0.5-2.0) mmol/L Calcium 8.9 (8.6-10.3) mg/dL Total Bilirubin 1.20 H (0.2-1.0) mg/dL AST 20 (13-39) U/L ALT 20 (7-52) U/L Alkaline Phosphatase 52 (34-104) U/L C-Reactive Protein 83.15 H (<8.01) mg/L Total Protein 7.1 (6.4-8.9) g/dL Albumin 4.1 (3.2-5.2) g/dL Globulin 3.0 (2-4) g/dL Albumin/Globulin Ratio 1.4 (1-3) Lipase 2272 H (11.0-82.0) U/L Microbiology and Other Data: Microbiology 09/30/18 07:50 Urine Culture - Final Urine No Growth (<1,000 CFU/mL) Assess/Plan/Problems-Billing Assessment: Pt is a 58 yom with PMHx obesity, HTN, diverticulitis s/p L hemicolectomy, hypothyroid who presented to ER with pancreatitis - Patient Problems (1) Pancreatitis Comment: NPO, pain control with dilaudid and c/w LR at 200cc replete potassium stopped abx on 10/02 unclear etiology other than possible effect from chlorthalidone last episode took 10 days to resolve (2) Hypertension Comment: -Home medication Chlorthalidone held, d/t Class III agent risk for pancreatitis -holding Losartan while normotensive (3) Hypothyroid Comment: -Continue levothyroxine (4) DVT prophylaxis Comment: HSQ Status and Disposition: Inpatient. Discharge when stable.
[2018-10-03] MEDS ORDERED: KCL 20 MEQ/100 ML IVPREMIX* 20 MEQ/100 ML BAG ONE (21:07)
[2018-10-04] MEDS: Lactated Ringers 1000 ML Bag* 1,000 ML IV SCH ×4 (03:05→20:28)
[2018-10-04] MEDS: HYDROmorphone INJ1* 1 MG/ML SYRINGE IV SLOW PU PRN ×6 (03:06→21:44)
[2018-10-04] MEDS: PROCHLORPERAZINE INJ 5 MG/ML 2 ML VIAL IV PRN ×2 (05:52→21:47)
[2018-10-04] MEDS: Levothyroxine TAB* 100 MCG TAB PO SCH (05:53)
[2018-10-04] MEDS: Heparin VIAL(*) 5000 UNITS/ML VIAL (FIVE THOUSAND) SUBCUT SCH ×3 (05:53→21:44)
[2018-10-04 07:17] LABS: ABS Basophils 0.1 10^3/ul (0-0.2); ABS Eosinophils 0.4 10^3/ul (0-0.6); ABS Lymphocytes 1.8 10^3/ul (1.0-4.8); ABS Monocytes 1.5 10^3/ul (0-0.8); ABS Neutrophils 12.4 10^3/ul (1.5-7.7); ABS Nucleated RBC 0 10^3/ul; Eosinophil % 2.6 %; Hematocrit 37 % (36-46); Hemoglobin 12.7 g/dL (14.0-18.0); Lymphocyte % 11.3 %; Mean Corpuscular HGB Conc 34 g/dL (31-36); Mean Corpuscular Hemoglobin 30 pg (27-31); Mean Corpuscular Volume 88 fL (80-94); Mean Platelet Volume 8.4 fL (7.4-10.4); Nucleated Red Blood Cells % 0; Platelet Count 187 10^3/uL (150-450); Red Blood Count 4.22 10^6 /uL (4.18-5.48); Red Cell Distribution Width 14 % (10.5-15); White Blood Count 16.3 10^3/uL (3.5-10.8)
[2018-10-04 07:36] LABS: BUN/Creatinine Ratio 13.9 (8-20); Calcium 7.8 mg/dL (8.6-10.3); EGFR African American 135.2 (>60); EGFR Non-African American 111.7 (>60); Magnesium 1.7 mg/dL (1.9-2.7)
[2018-10-04] MEDS: Aspirin EC TAB* 81 MG TAB.EC PO SCH (09:16)
[2018-10-04] MEDS ORDERED: Magnesium Sulfate 2 GM IV* 2 GM/50 ML BAG IVPB ONE (13:20)
--- NOTE | 2018-10-04 15:22 | PN ---
Subjective Date of Service: 10/04/18 Interval History: Pain feels better but still requiring dilaudid every 4 hours ambulating around abarca 2 times several times a day no N/V Objective Active Medications: Acetaminophen (Tylenol Tab*) 650 mg PO Q6H PRN PRN Reason: FEVER Last Admin: 10/01/18 20:28 Dose: 650 mg Aspirin (Aspirin Ec Tab*) 81 mg PO DAILY [facility] Last Admin: 10/04/18 09:16 Dose: 81 mg Docusate Sodium (Colace Cap*) 100 mg PO BID PRN PRN Reason: CONSTIPATION Last Admin: 10/01/18 16:34 Dose: 100 mg Heparin Sodium (Porcine) (Heparin Vial(*)) 5,000 units SUBCUT Q8HR [facility] Last Admin: 10/04/18 14:11 Dose: 5,000 units Hydromorphone HCl (Dilaudid Inj1s*) 1 mg IV SLOW PU Q2H PRN PRN Reason: PAIN Last Admin: 10/04/18 14:00 Dose: 1 mg Lactated Ringer's (Lactated Ringers 1000 Ml Bag*) 1,000 mls @ 200 mls/hr IV PER RATE [facility] Last Admin: 10/04/18 14:11 Dose: 200 mls/hr Potassium Chloride (Potassium Chloride 20 Meq/100 Ml Ivpremix*) 20 meq in 100 mls @ 50 mls/hr IV Q2H [facility] Stop: 10/04/18 19:59 Levothyroxine Sodium (Synthroid Tab*) 100 mcg PO 0600 [facility] Last Admin: 10/04/18 05:53 Dose: 100 mcg Prochlorperazine Edisylate (Compazine Inj*) 2.5 mg IV Q6H PRN PRN Reason: NAUSEA/VOMITING Last Admin: 10/04/18 05:52 Dose: 2.5 mg Senna (Senokot Tab*) 1 tab PO DAILY PRN PRN Reason: CONSTIPATION Last Admin: 10/01/18 16:34 Dose: 1 tab Vital Signs - 8 hr 10/04/18 10/04/18 10/04/18 07:34 07:45 08:00 Temperature 98.5 F Pulse Rate 91 Respiratory 22 14 14 Rate Blood Pressure 136/71 (mmHg) O2 Sat by Pulse 93 Oximetry 10/04/18 10/04/18 10/04/18 10:02 11:02 12:40 Temperature 99.5 F Pulse Rate 93 Respiratory 14 14 20 Rate Blood Pressure 155/73 (mmHg) O2 Sat by Pulse 96 Oximetry 10/04/18 14:00 Temperature Pulse Rate Respiratory 20 Rate Blood Pressure (mmHg) O2 Sat by Pulse Oximetry Oxygen Devices in Use Now: None Appearance: lying flat, NAD Eyes: No Scleral Icterus, PERRLA Ears/Nose/Mouth/Throat: NL Teeth, Lips, Gums, Mucous Membranes Moist Neck: NL Appearance and Movements; NL JVP, Trachea Midline Respiratory: Symmetrical Chest Expansion and Respiratory Effort, - - trace rales on right base Cardiovascular: NL Sounds; No Murmurs; No JVD, RRR Abdominal: - - mild TTP epigastrum Extremities: No Edema Skin: No Rash or Ulcers Neurological: Alert and Oriented x 3 Result Diagrams: 10/04/18 06:40 10/04/18 06:40 Additional Lab and Data: Lab Results 09/29/18 09/29/18 09/29/18 Range/Units 22:14 22:15 22:15 WBC 17.0 H (3.5-10.8) 10^3/uL RBC 5.17 (4.18-5.48) 10^6 /uL Hgb 15.5 (14.0-18.0) g/dL Hct 45 (36-46) % MCV 87 (80-94) fL MCH 30 (27-31) pg MCHC 35 (31-36) g/dL RDW 14 (10.5-15) % Plt Count 216 (150-450) 10^3/uL MPV 8.7 (7.4-10.4) fL Neut % (Auto) 81.6 % Lymph % (Auto) 12.6 % [place] % (Auto) 5.0 % Eos % (Auto) 0.5 % Baso % (Auto) 0.3 % Absolute Neuts (auto) 13.9 H (1.5-7.7) 10^3/ul Absolute Lymphs (auto) 2.1 (1.0-4.8) 10^3/ul Absolute Monos (auto) 0.9 H (0-0.8) 10^3/ul Absolute Eos (auto) 0.1 (0-0.6) 10^3/ul Absolute Basos (auto) 0 (0-0.2) 10^3/ul Absolute Nucleated RBC 0 10^3/ul Nucleated RBC % 0 Sodium 132 L (135-145) mmol/L Potassium 3.4 L (3.5-5.0) mmol/L Chloride 94 L (101-111) mmol/L Carbon Dioxide 28 (22-32) mmol/L Anion Gap 10 (2-11) mmol/L BUN 20 (6-24) mg/dL Creatinine 0.99 (0.67-1.17) mg/dL Est GFR ( Amer) 93.6 (>60) Est GFR (Non-Af Amer) 77.4 (>60) BUN/Creatinine Ratio 20.2 H (8-20) Glucose 137 H (70-100) mg/dL Lactic Acid 1.2 (0.5-2.0) mmol/L Calcium 8.9 (8.6-10.3) mg/dL Total Bilirubin 1.20 H (0.2-1.0) mg/dL AST 20 (13-39) U/L ALT 20 (7-52) U/L Alkaline Phosphatase 52 (34-104) U/L C-Reactive Protein 83.15 H (<8.01) mg/L Total Protein 7.1 (6.4-8.9) g/dL Albumin 4.1 (3.2-5.2) g/dL Globulin 3.0 (2-4) g/dL Albumin/Globulin Ratio 1.4 (1-3) Lipase 2272 H (11.0-82.0) U/L Microbiology and Other Data: Microbiology 09/30/18 07:50 Urine Culture - Final Urine No Growth (<1,000 CFU/mL) Assess/Plan/Problems-Billing Assessment: Pt is a 58 yo M with PMHx obesity, HTN, diverticulitis s/p L hemicolectomy, hypothyroid who presented to ER with pancreatitis - Patient Problems (1) Diabetes Comment: HbA1c 6.5 Consider metformin on dc results not discussed with pt as of yet. (2) Pancreatitis Comment: NPO, pain control with dilaudid and c/w LR at 200cc replete potassium again daily stopped abx on 10/02 unclear etiology other than possible effect from chlorthalidone last episode took 10 days to resolve (3) Hypertension Comment: -Home medication Chlorthalidone held, d/t Class III agent risk for pancreatitis -holding Losartan while normotensive (4) Hypothyroid Comment: -Continue levothyroxine (5) DVT prophylaxis Comment: HSQ Status and Disposition: Inpatient. Discharge when stable.
[2018-10-04] MEDS: KCL 20 MEQ/100 ML IVPREMIX* 20 MEQ/100 ML BAG IV SCH ×3 (15:25→20:13)
[2018-10-05] MEDS: KCL 20 MEQ/100 ML IVPREMIX* 20 MEQ/100 ML BAG IV SCH (00:37)
[2018-10-05] MEDS: HYDROmorphone INJ1* 1 MG/ML SYRINGE IV SLOW PU PRN ×2 (01:40→06:21)
[2018-10-05] MEDS: Levothyroxine TAB* 100 MCG TAB PO SCH (05:27)
[2018-10-05] MEDS: Heparin VIAL(*) 5000 UNITS/ML VIAL (FIVE THOUSAND) SUBCUT SCH ×3 (05:27→22:09)
[2018-10-05] MEDS: Lactated Ringers 1000 ML Bag* 1,000 ML IV SCH ×2 (06:23→12:37)
[2018-10-05] MEDS: Aspirin EC TAB* 81 MG TAB.EC PO SCH (08:32)
[2018-10-05] MEDS ORDERED: oxyCODONE/Acetamin 5/325 MG* TAB PO PRN (10:00)
[2018-10-05 11:25] LABS: BUN/Creatinine Ratio 12.8 (8-20); EGFR African American 123.3 (>60); EGFR Non-African American 101.9 (>60); Potassium 3.3 mmol/L (3.5-5.0)
[2018-10-05] MEDS ORDERED: Potassium Chlor TAB* 20 MEQ TAB.ER PO ONE (15:41)
--- NOTE | 2018-10-05 17:06 | PN ---
Subjective Date of Service: 10/05/18 Interval History: Pain improved Would like to try food Tolerated clear liquid diet after trialled this AM Discussed new dx DM2 and starting metformin tomorrow Objective Active Medications: Acetaminophen (Tylenol Tab*) 650 mg PO Q6H PRN PRN Reason: FEVER Last Admin: 10/01/18 20:28 Dose: 650 mg Aspirin (Aspirin Ec Tab*) 81 mg PO DAILY [facility] Last Admin: 10/05/18 08:32 Dose: 81 mg Docusate Sodium (Colace Cap*) 100 mg PO BID PRN PRN Reason: CONSTIPATION Last Admin: 10/01/18 16:34 Dose: 100 mg Heparin Sodium (Porcine) (Heparin Vial(*)) 5,000 units SUBCUT Q8HR [facility] Last Admin: 10/05/18 12:44 Dose: 5,000 units Levothyroxine Sodium (Synthroid Tab*) 100 mcg PO 0600 [facility] Last Admin: 10/05/18 05:27 Dose: 100 mcg Lisinopril (Prinivil Tab*) 40 mg PO DAILY [facility] Metformin HCl (Glucophage*) 500 mg PO DAILY [facility] Oxycodone/Acetaminophen (Percocet 5/325 Tab*) 2 tab PO Q4H PRN PRN Reason: PAIN Prochlorperazine Edisylate (Compazine Inj*) 2.5 mg IV Q6H PRN PRN Reason: NAUSEA/VOMITING Last Admin: 10/04/18 21:47 Dose: 2.5 mg Senna (Senokot Tab*) 1 tab PO DAILY PRN PRN Reason: CONSTIPATION Last Admin: 10/01/18 16:34 Dose: 1 tab Oxygen Devices in Use Now: None Appearance: NAD Eyes: No Scleral Icterus, PERRLA Ears/Nose/Mouth/Throat: NL Teeth, Lips, Gums, Clear Oropharnyx Neck: NL Appearance and Movements; NL JVP, Trachea Midline Respiratory: Symmetrical Chest Expansion and Respiratory Effort, - - trace end expiratory wheezes Cardiovascular: RRR Abdominal: NL Sounds; No Tenderness; No Distention, No Hepatosplenomegaly Lymphatic: No Cervical Adenopathy, No Axillary Adenopathy Extremities: No Edema Skin: No Rash or Ulcers Neurological: Alert and Oriented x 3 Result Diagrams: 10/04/18 06:40 10/05/18 11:01 Additional Lab and Data: Lab Results 09/29/18 09/29/18 09/29/18 Range/Units 22:14 22:15 22:15 WBC 17.0 H (3.5-10.8) 10^3/uL RBC 5.17 (4.18-5.48) 10^6 /uL Hgb 15.5 (14.0-18.0) g/dL Hct 45 (36-46) % MCV 87 (80-94) fL MCH 30 (27-31) pg MCHC 35 (31-36) g/dL RDW 14 (10.5-15) % Plt Count 216 (150-450) 10^3/uL MPV 8.7 (7.4-10.4) fL Neut % (Auto) 81.6 % Lymph % (Auto) 12.6 % [place] % (Auto) 5.0 % Eos % (Auto) 0.5 % Baso % (Auto) 0.3 % Absolute Neuts (auto) 13.9 H (1.5-7.7) 10^3/ul Absolute Lymphs (auto) 2.1 (1.0-4.8) 10^3/ul Absolute Monos (auto) 0.9 H (0-0.8) 10^3/ul Absolute Eos (auto) 0.1 (0-0.6) 10^3/ul Absolute Basos (auto) 0 (0-0.2) 10^3/ul Absolute Nucleated RBC 0 10^3/ul Nucleated RBC % 0 Sodium 132 L (135-145) mmol/L Potassium 3.4 L (3.5-5.0) mmol/L Chloride 94 L (101-111) mmol/L Carbon Dioxide 28 (22-32) mmol/L Anion Gap 10 (2-11) mmol/L BUN 20 (6-24) mg/dL Creatinine 0.99 (0.67-1.17) mg/dL Est GFR ( Amer) 93.6 (>60) Est GFR (Non-Af Amer) 77.4 (>60) BUN/Creatinine Ratio 20.2 H (8-20) Glucose 137 H (70-100) mg/dL Lactic Acid 1.2 (0.5-2.0) mmol/L Calcium 8.9 (8.6-10.3) mg/dL Total Bilirubin 1.20 H (0.2-1.0) mg/dL AST 20 (13-39) U/L ALT 20 (7-52) U/L Alkaline Phosphatase 52 (34-104) U/L C-Reactive Protein 83.15 H (<8.01) mg/L Total Protein 7.1 (6.4-8.9) g/dL Albumin 4.1 (3.2-5.2) g/dL Globulin 3.0 (2-4) g/dL Albumin/Globulin Ratio 1.4 (1-3) Lipase 2272 H (11.0-82.0) U/L Microbiology and Other Data: Microbiology 09/30/18 07:50 Urine Culture - Final Urine No Growth (<1,000 CFU/mL) Assess/Plan/Problems-Billing Assessment: Pt is a 58 yo M with PMHx obesity, HTN, diverticulitis s/p L hemicolectomy, hypothyroid who presented to ER with pancreatitis - Patient Problems (1) Pancreatitis Comment: d/c LR and start clear liquid diet 10/05 Advance diet tomorrow as tolerated d/c dilaudid. PO pain meds but should not need much if pancreatitis resolved replete potassium again daily and check tomorrow stopped abx on 10/02 unclear etiology other than possible effect from chlorthalidone last episode (4 years prior) took 10 days to resolve (2) Diabetes Comment: HbA1c 6.5 starting metformin 10/06 (3) Hypertension Comment: Home medication Chlorthalidone held, d/t Class III agent risk for pancreatitis Restart lisinopril 10/06 (4) Hypothyroid Comment: -Continue levothyroxine (5) DVT prophylaxis Comment: HSQ Status and Disposition: Inpatient. Discharge when stable.
[2018-10-05] MEDS: Acetaminophen TAB* 325 MG PO PRN (17:33)
[2018-10-06] MEDS: Acetaminophen TAB* 325 MG PO PRN ×2 (00:23→06:17)
[2018-10-06] MEDS: Levothyroxine TAB* 100 MCG TAB PO SCH (05:24)
[2018-10-06] MEDS: Heparin VIAL(*) 5000 UNITS/ML VIAL (FIVE THOUSAND) SUBCUT SCH ×2 (05:24→15:24)
[2018-10-06 06:45] LABS: BUN/Creatinine Ratio 12.8 (8-20); EGFR African American 123.3 (>60); EGFR Non-African American 101.9 (>60); Potassium 3.1 mmol/L (3.5-5.0)
[2018-10-06] MEDS: Aspirin EC TAB* 81 MG TAB.EC PO SCH (08:33)
[2018-10-06] MEDS ORDERED: metFORMIN* 500 MG TAB PO SCH (09:00)
[2018-10-06] MEDS ORDERED: Lisinopril TAB* 10 MG PO SCH (09:00)
[2018-10-06 15:55] VITALS: BP 144/76
--- NOTE | 2018-10-06 23:48 | DS ---
CC: Dr. Coreas * DISCHARGE SUMMARY: DATE OF ADMISSION: 09/30/18 DATE OF DISCHARGE: 10/06/18 PRINCIPAL DISCHARGE DIAGNOSES: 1. Acute pancreatitis. 2. Hypokalemia. 3. New diagnosis of diabetes. SECONDARY DISCHARGE DIAGNOSES: 1. Hypertension. 2. Obesity. 3. Hypothyroidism. 4. History of diverticulitis, status post hemicolectomy. MEDICATIONS AT DISCHARGE: 1. Lisinopril 40 mg daily. 2. Levothyroxine 100 mcg daily. 3. Aspirin 81 mg daily. 4. Amlodipine 10 mg daily. 5. KCl 20 mEq b.i.d. for 3 more days. Medication changes on this admission included a change from chlorthalidone to amlodipine and the addition of potassium for 3 days after discharge. PHYSICAL EXAM AT DISCHARGE: Temperature 98.6, heart rate 78, respiratory rate 16, pulse ox 98% on room air, blood pressure 144/76. General: Alert, well- appearing obese man, in no distress. HEENT: Pupils equal, round, reactive to light. Oral mucosa is moist. Neck: No JVP. No cervical adenopathy. Chest: Regular rate and rhythm. No murmurs. PMI is nondisplaced. Lungs are clear bilaterally. Abdomen is obese with an old laparotomy incision that is well healed. His abdomen is nontender. No guarding or rebound. No CVA tenderness. His liver is not palpable. Extremities: No edema, rashes or ulcers. Neurologic: Strength is 5/5. He is oriented x3. PERTINENT IMAGING ON THIS ADMISSION: An abdomen and pelvis CT on 09/29/18 showed acute pancreatitis, a small fat containing umbilical hernia status post partial sigmoid resection surgery and colonic diverticulosis. A gall-bladder ultrasound on 09/30/18 showed fatty infiltration of the liver. HOSPITAL COURSE BY PROBLEM: 1. Acute pancreatitis. No clear etiology has been found except for the possibility that he has been on chlorthalidone; this was hold during this admission and I had switched him to amlodipine at the time of discharge. An IgG4 was within normal limits as was an CAROL. He was treated with IV fluids, antiemetics, and pain medications and at the time of discharge, he has no pain. He is tolerating a bland diet and has no other complaints. He is to slowly advance his diet at home and was encouraged to stay hydrated. 2. Hypokalemia. He is being discharged on 3 more days of p.o. potassium repletion. When he follows up with his primary care provider, I would recommend rechecking of BMP to ensure his potassium has been repleted. 3. New diagnosis of diabetes. He was tried on metformin during this admission ; however, he could not tolerate it in the setting of acute pancreatitis. This needs to be followed up with his primary care physician and he may choose to retry metformin or an alternative agent once his GI symptoms have resolved. 4. Hypertension. As mentioned above, chlorthalidone was discontinued in favor of amlodipine. 5. Disposition: Mr. Andrade is being discharged to home with his and children where he is instructed to slowly advance his diet from what he is currently on, which was a low residue diet and advance it as tolerated. He is instructed to stay hydrated. Follow up needed when he is seen in the outpatient setting. Please consider further discussion of a new diagnosis of diabetes. His hemoglobin A1c was 6.5 and also I would consider rechecking a BMP to ensure his potassium has been repleted. CONDITION AT THE TIME OF DISCHARGE: Stable. TIME SPENT: Forty minutes was spent on this discharge. [id number]/[facility] #: [id number] LIA
== END 2018-10-06 18:45 | disposition home or self-care (01) | DRG 282 ==
LOC: ED 20:04 → MED 09-30 02:21
PROVIDERS: ADMIT Internal Medicine; ATTEND Internal Medicine
DX: K85.90 Acute pancreatitis without necrosis or infection, unspecified (principal); Z68.41 Body mass index [BMI] 40.0-44.9, adult; E66.01 Morbid (severe) obesity due to excess calories; E11.65 Type 2 diabetes mellitus with hyperglycemia; K76.0 Fatty (change of) liver, not elsewhere classified; D72.829 Elevated white blood cell count, unspecified; E87.6 Hypokalemia; I10 Essential (primary) hypertension; E03.9 Hypothyroidism, unspecified; K42.9 Umbilical hernia without obstruction or gangrene; Z79.82 Long term (current) use of aspirin; Z79.899 Other long term (current) drug therapy; Z80.0 Family history of malignant neoplasm of digestive organs; Z83.79 Family history of other diseases of the digestive system; Z83.49 Family history of other endocrine, nutritional and metabolic diseases; Z82.3 Family history of stroke; Z82.49 Family history of ischemic heart disease and other diseases of the circulatory system
CPT/HCPCS: 36415; 74177; 76705; 80048; 80053; 80061; 80076; 81003; 81015; 82784; 82787; 83036; 83605; 83690; 83735; 85025; 86038; 86140; 87040; 87086; 93005; 99284; A9270-GY; J0744; J0780; J1170; J1644; J2405; J2765; J3475; J3480; J3490; Q9967

== ENCOUNTER 2021-06-11 11:17 | Inpatient (IN) ==
[2021-06-11] MEDS ORDERED: Morphine 4 MG/ML VIAL (1 ml) IV ONE ×2 (11:21→11:43)
[2021-06-11] MEDS ORDERED: Lactated Ringers 1000 ml BAG 1,000 ML IV ONE (11:21)
[2021-06-11 11:43] LABS: ABS Basophils 0.1 10^3/ul (0-0.2); ABS Eosinophils 0.3 10^3/ul (0-0.6); ABS Lymphocytes 4.4 10^3/ul (1.0-4.8); ABS Monocytes 1.2 10^3/ul (0-0.8); ABS Neutrophils 11.4 10^3/ul (1.5-7.7); Eosinophil % 1.8 %; Hematocrit 48 % (42-52); Hemoglobin 16.8 g/dL (14.0-18.0); Lymphocyte % 25.3 %; Mean Corpuscular HGB Conc 35 g/dL (31-36); Mean Corpuscular Hemoglobin 30 pg (27-31); Mean Corpuscular Volume 87 fL (80-94); Mean Platelet Volume 8.9 fL (7.4-10.4); Platelet Count 240 10^3/uL (150-450); Red Blood Count 5.55 10^6 /uL (4.18-5.48); Red Cell Distribution Width 14 % (10-15); White Blood Count 17.5 10^3/uL (3.5-10.8)
[2021-06-11 11:59] LABS: ALT 20 U/L (7-52); AST 16 U/L (13-39); Albumin/Globulin Ratio 1.5 (1-3); Alkaline Phosphatase 54 U/L (35-149); Anion Gap 12 mmol/L (2-11); Blood Urea Nitrogen 16 mg/dL (6-24); CO2 Carbon Dioxide 24 mmol/L (22-32); Calcium 8.8 mg/dL (8.6-10.3); Chloride 99 mmol/L (101-111); Globulin 2.7 g/dL (2-4); Glucose 227 mg/dL (70-100); Potassium 3.3 mmol/L (3.5-5.0); Sodium 135 mmol/L (135-145); Total Protein 6.7 g/dL (6.4-8.9); eGFR CKD-EPI 79.3 (>60)
[2021-06-11] MEDS ORDERED: Ondansetron 4 mg VIAL 2 MG/ML 2 ml VIAL IV ONE (11:59)
[2021-06-11] MEDS ORDERED: HYDROmorphone 1 MG/1 ML SYRINGE IV ONE ×3 (11:59→15:40)
[2021-06-11 12:19] LABS: Lipase 3245 U/L (11.0-82.0)
[2021-06-11] MEDS ORDERED: Famotidine IV 10 MG/ML 2 ml VIAL (20 mg) IV SLOW PU ONE (12:19)
[2021-06-11] MEDS ORDERED: HYDROmorphone 1 MG/1 ML SYRINGE IV SLOW PU PRN ×2 (14:45→19:30)
[2021-06-11] MEDS ORDERED: Dextrose 50% Syringe 50 ml 25 GM/50 ML SYRINGE IV PUSH PRN (15:10)
[2021-06-11] MEDS: KCL 20 MEQ/100 ML IVPREMIX 20 MEQ/100 ML BAG IV SCH ×2 (15:12→19:37)
[2021-06-11] MEDS: Enoxaparin 40 MG/0.4 ML SYR SUBCUT SCH (15:12)
[2021-06-11] MEDS: Lactated Ringers 1000 ml BAG 1,000 ML IV SCH ×2 (15:12→21:31)
[2021-06-11 15:36] LABS: Triglycerides 201 mg/dL
[2021-06-11 15:59] LABS: Alcohol, S < 13 mg/dL (<13)
[2021-06-11 16:17] LABS: Rapid COVID-19 Molecular Undetected (Undetected)
[2021-06-11] MEDS ORDERED: HYDROmorphone 1 MG/1 ML SYRINGE IV SLOW PU SCH (19:30)
[2021-06-12] MEDS: HYDROmorphone 1 MG/1 ML SYRINGE IV SLOW PU PRN ×11 (00:27→23:52)
[2021-06-12] MEDS: Lactated Ringers 1000 ml BAG 1,000 ML IV SCH ×3 (02:35→18:45)
[2021-06-12 06:31] LABS: Hematocrit 48 % (42-52); Hemoglobin 16.7 g/dL (14.0-18.0); Mean Corpuscular HGB Conc 34 g/dL (31-36); Mean Corpuscular Hemoglobin 30 pg (27-31); Mean Corpuscular Volume 87 fL (80-94); Mean Platelet Volume 8.7 fL (7.4-10.4); Platelet Count 191 10^3/uL (150-450); Red Cell Distribution Width 14 % (10-15); White Blood Count 23.2 10^3/uL (3.5-10.8)
[2021-06-12 06:52] LABS: Albumin 3.7 g/dL (3.2-5.2); Albumin/Globulin Ratio 1.4 (1-3); Globulin 2.7 g/dL (2-4); Potassium 4.2 mmol/L (3.5-5.0); Total Protein 6.4 g/dL (6.4-8.9); eGFR CKD-EPI 98.6 (>60)
[2021-06-12] MEDS: Pantoprazole VIAL 40 MG VIAL IV SCH (08:46)
[2021-06-12] MEDS ORDERED: Flu vaccine *QUAD* 2021-22* 0.5 ML SYRINGE IM ONE (09:00)
[2021-06-12] MEDS: Enoxaparin 40 MG/0.4 ML SYR SUBCUT SCH (14:56)
[2021-06-12] MEDS: Ondansetron 4 mg VIAL 2 MG/ML 2 ml VIAL IV PRN (17:43)
[2021-06-12] MEDS: Fluticasone NASAL SPRAY 50MCG 16 gm SPRAY BTL BOTH NARES SCH (23:50)
[2021-06-13] MEDS: HYDROmorphone 1 MG/1 ML SYRINGE IV SLOW PU PRN ×9 (01:46→22:22)
[2021-06-13 05:39] LABS: Hematocrit 42 % (42-52); Hemoglobin 14.2 g/dL (14.0-18.0); Mean Corpuscular HGB Conc 34 g/dL (31-36); Mean Corpuscular Hemoglobin 30 pg (27-31); Mean Corpuscular Volume 88 fL (80-94); Mean Platelet Volume 8.9 fL (7.4-10.4); Platelet Count 153 10^3/uL (150-450); Red Blood Count 4.73 10^6 /uL (4.18-5.48); Red Cell Distribution Width 14 % (10-15); White Blood Count 24.7 10^3/uL (3.5-10.8)
[2021-06-13 05:55] LABS: Calcium 7.7 mg/dL (8.6-10.3); eGFR CKD-EPI 55.9 (>60)
[2021-06-13] MEDS: Lactated Ringers 1000 ml BAG 1,000 ML IV SCH (07:27)
[2021-06-13] MEDS ORDERED: NS 0.9% 1000 ml BAG 1,000 ML IV SCH (08:30)
[2021-06-13] MEDS: Pantoprazole VIAL 40 MG VIAL IV SCH (08:56)
[2021-06-13] MEDS: Fluticasone NASAL SPRAY 50MCG 16 gm SPRAY BTL BOTH NARES SCH (08:59)
[2021-06-13] MEDS: Enoxaparin 40 MG/0.4 ML SYR SUBCUT SCH (15:11)
[2021-06-13] MEDS: NS 0.9% 1000 ml BAG 1,000 ML IV SCH ×2 (15:19→22:38)
[2021-06-13] MEDS: Ondansetron 4 mg VIAL 2 MG/ML 2 ml VIAL IV PRN (17:18)
[2021-06-14] MEDS: HYDROmorphone 1 MG/1 ML SYRINGE IV SLOW PU PRN ×10 (00:28→22:46)
[2021-06-14] MEDS: Albuterol HFA INHALER 8 gm MDI INH PRN ×3 (02:50→23:33)
[2021-06-14] MEDS: NS 0.9% 1000 ml BAG 1,000 ML IV SCH ×4 (02:56→17:57)
[2021-06-14 06:18] LABS: Hematocrit 39 % (42-52); Hemoglobin 13.3 g/dL (14.0-18.0); Mean Corpuscular HGB Conc 35 g/dL (31-36); Mean Corpuscular Hemoglobin 30 pg (27-31); Mean Corpuscular Volume 88 fL (80-94); Mean Platelet Volume 8.9 fL (7.4-10.4); Platelet Count 134 10^3/uL (150-450); Red Blood Count 4.38 10^6 /uL (4.18-5.48); Red Cell Distribution Width 14 % (10-15); White Blood Count 18.7 10^3/uL (3.5-10.8)
[2021-06-14 06:19] LABS: ABS Lymphocytes 1.2 10^3/ul (1.0-4.8); ABS Monocytes 1.5 10^3/ul (0-0.8); Eosinophil % 0.2 %; Lymphocyte % 6.4 %
[2021-06-14 06:39] LABS: Albumin 3.3 g/dL (3.2-5.2); Calcium 7.8 mg/dL (8.6-10.3); Potassium 3.9 mmol/L (3.5-5.0)
[2021-06-14 06:44] LABS: Albumin/Globulin Ratio 1.2 (1-3); Globulin 2.8 g/dL (2-4); Total Protein 6.1 g/dL (6.4-8.9); eGFR CKD-EPI 82.1 (>60)
[2021-06-14] MEDS: Pantoprazole VIAL 40 MG VIAL IV SCH (07:40)
[2021-06-14] MEDS: Fluticasone NASAL SPRAY 50MCG 16 gm SPRAY BTL BOTH NARES SCH ×2 (07:40→09:59)
[2021-06-14] MEDS: Ondansetron 4 mg VIAL 2 MG/ML 2 ml VIAL IV PRN ×2 (07:40→15:54)
[2021-06-14] MEDS: Acetaminophen IV 1 GM/100ML 100 ML IV PRN ×2 (10:40→21:39)
[2021-06-14] MEDS: Enoxaparin 40 MG/0.4 ML SYR SUBCUT SCH (13:19)
[2021-06-14] MEDS ORDERED: Polyethylene Glycol 3350 17 GM PACKET PO ONE (21:56)
[2021-06-15] MEDS: HYDROmorphone 1 MG/1 ML SYRINGE IV SLOW PU PRN ×9 (00:46→22:04)
[2021-06-15] MEDS ORDERED: Polyethylene Glycol 3350 17 GM PACKET PO ONE (03:10)
[2021-06-15] MEDS: NS 0.9% 1000 ml BAG 1,000 ML IV SCH (04:53)
[2021-06-15 06:03] LABS: Hematocrit 37 % (42-52); Hemoglobin 12.5 g/dL (14.0-18.0); Mean Corpuscular HGB Conc 34 g/dL (31-36); Mean Corpuscular Hemoglobin 30 pg (27-31); Mean Corpuscular Volume 88 fL (80-94); Mean Platelet Volume 8.8 fL (7.4-10.4); Platelet Count 138 10^3/uL (150-450); Red Blood Count 4.16 10^6 /uL (4.18-5.48); Red Cell Distribution Width 14 % (10-15); White Blood Count 16.4 10^3/uL (3.5-10.8)
[2021-06-15 06:21] LABS: Albumin 3.2 g/dL (3.2-5.2); Albumin/Globulin Ratio 1.2 (1-3); Calcium 7.7 mg/dL (8.6-10.3); Globulin 2.7 g/dL (2-4); Potassium 3.3 mmol/L (3.5-5.0); Total Protein 5.9 g/dL (6.4-8.9); eGFR CKD-EPI 102.4 (>60)
[2021-06-15] MEDS: Acetaminophen IV 1 GM/100ML 100 ML IV PRN ×2 (06:26→22:03)
[2021-06-15] MEDS ORDERED: Potassium Chlor 20 meq TAB.ER PO ONE (07:51)
[2021-06-15] MEDS ORDERED: PEG 3000 GI LAVAGE 1 GALLON PO ONE (08:44)
[2021-06-15] MEDS: Pantoprazole VIAL 40 MG VIAL IV SCH (08:59)
[2021-06-15] MEDS: Fluticasone NASAL SPRAY 50MCG 16 gm SPRAY BTL BOTH NARES SCH (09:05)
[2021-06-15] MEDS ORDERED: Furosemide 40 mg/4 ml IV VIAL IV SLOW PU ONE (09:30)
[2021-06-15] MEDS: Enoxaparin 40 MG/0.4 ML SYR SUBCUT SCH (14:59)
[2021-06-15] MEDS: hydrALAZINE 20 mg/ml 1 ML Vial IV IV SLOW PU PRN (17:15)
[2021-06-15] MEDS ORDERED: Gadoteridol (CONTRAST) 279.3 MG/ML 10 ML IV ONE (21:39)
[2021-06-16 00:10] LABS: IgG Immunoblot Negative (Negative); IgM Immunoblot Negative (Negative)
[2021-06-16] MEDS: HYDROmorphone 1 MG/1 ML SYRINGE IV SLOW PU PRN ×9 (01:15→22:32)
[2021-06-16 06:18] LABS: Hematocrit 38 % (42-52); Hemoglobin 12.9 g/dL (14.0-18.0); Mean Corpuscular HGB Conc 34 g/dL (31-36); Mean Corpuscular Hemoglobin 30 pg (27-31); Mean Corpuscular Volume 88 fL (80-94); Mean Platelet Volume 8.5 fL (7.4-10.4); Platelet Count 150 10^3/uL (150-450); Red Blood Count 4.29 10^6 /uL (4.18-5.48); Red Cell Distribution Width 14 % (10-15)
[2021-06-16 06:41] LABS: Albumin 3.1 g/dL (3.2-5.2); Albumin/Globulin Ratio 1.1 (1-3); Calcium 7.8 mg/dL (8.6-10.3); Globulin 2.8 g/dL (2-4); Potassium 3.1 mmol/L (3.5-5.0); Total Bilirubin 0.9 mg/dL (0.2-1.0); Total Protein 5.9 g/dL (6.4-8.9); eGFR CKD-EPI 103.7 (>60)
[2021-06-16] MEDS: hydrALAZINE 20 mg/ml 1 ML Vial IV IV SLOW PU PRN (08:16)
[2021-06-16] MEDS: Pantoprazole VIAL 40 MG VIAL IV SCH (08:17)
[2021-06-16] MEDS: Fluticasone NASAL SPRAY 50MCG 16 gm SPRAY BTL BOTH NARES SCH (08:17)
[2021-06-16 08:22] LABS: RBC Morphology Normal (Normal)
[2021-06-16 08:23] LABS: ABS Eosinophils 0.2 10^3/ul (0-0.6); ABS Lymphocytes 1.3 10^3/ul (1.0-4.8); ABS Monocytes 1.6 10^3/ul (0-0.8); ABS Neutrophils 12.8 10^3/ul (1.5-7.7); Eosinophil % 1.1 %; Lymphocyte % 8.3 %
[2021-06-16] MEDS: Acetaminophen IV 1 GM/100ML 100 ML IV PRN ×2 (08:49→22:14)
[2021-06-16] MEDS: Morphine ER 15 mg TAB ** extended release PO SCH ×2 (12:19→18:12)
[2021-06-16] MEDS: Magnesium Hydroxide LIQ 30 ML UDC PO SCH ×2 (12:19→20:31)
[2021-06-16] MEDS: Enoxaparin 40 MG/0.4 ML SYR SUBCUT SCH (14:46)
[2021-06-16] MEDS: KCL 10 MEQ/50 ML IVPREMIX 10 MEQ/50 ML BAG IV SCH (20:33)
[2021-06-17] MEDS: KCL 10 MEQ/50 ML IVPREMIX 10 MEQ/50 ML BAG IV SCH ×2 (00:01→02:30)
[2021-06-17] MEDS: HYDROmorphone 1 MG/1 ML SYRINGE IV SLOW PU PRN ×4 (00:34→09:25)
[2021-06-17] MEDS ORDERED: KCL premix 10 MEQ/50 ML x 1 TIME IV ONE (02:30)
[2021-06-17] MEDS: Morphine ER 15 mg TAB ** extended release PO SCH ×3 (02:35→18:03)
[2021-06-17] MEDS: Magnesium Hydroxide LIQ 30 ML UDC PO SCH ×2 (09:25→21:24)
[2021-06-17] MEDS: Pantoprazole VIAL 40 MG VIAL IV SCH (09:26)
[2021-06-17] MEDS: hydrALAZINE 20 mg/ml 1 ML Vial IV IV SLOW PU PRN (09:26)
[2021-06-17] MEDS: Fluticasone NASAL SPRAY 50MCG 16 gm SPRAY BTL BOTH NARES SCH (09:27)
[2021-06-17 10:13] LABS: Hematocrit 38 % (42-52); Hemoglobin 12.6 g/dL (14.0-18.0); Mean Corpuscular HGB Conc 34 g/dL (31-36); Mean Corpuscular Hemoglobin 30 pg (27-31); Mean Corpuscular Volume 89 fL (80-94); Mean Platelet Volume 8.7 fL (7.4-10.4); Platelet Count 169 10^3/uL (150-450); Red Blood Count 4.22 10^6 /uL (4.18-5.48); Red Cell Distribution Width 14 % (10-15); White Blood Count 14.2 10^3/uL (3.5-10.8)
[2021-06-17 10:26] LABS: Calcium 7.9 mg/dL (8.6-10.3); Potassium 3.1 mmol/L (3.5-5.0)
[2021-06-17 11:14] LABS: ABS Basophils 0.1 10^3/ul (0-0.2); ABS Eosinophils 0.3 10^3/ul (0-0.6); ABS Lymphocytes 1.4 10^3/ul (1.0-4.8); ABS Monocytes 1.5 10^3/ul (0-0.8); Lymphocyte % 10.1 %
[2021-06-17] MEDS ORDERED: hydrALAZINE 20 mg/ml 1 ML Vial IV IV SLOW PU PRN (11:25)
[2021-06-17] MEDS: Acetaminophen IV 1 GM/100ML 100 ML IV PRN ×2 (12:59→21:24)
[2021-06-17] MEDS: Enoxaparin 40 MG/0.4 ML SYR SUBCUT SCH (15:50)
[2021-06-18] MEDS: HYDROmorphone 1 MG/1 ML SYRINGE IV SLOW PU PRN (00:34)
[2021-06-18] MEDS: Morphine ER 15 mg TAB ** extended release PO SCH ×3 (02:02→17:25)
[2021-06-18] MEDS: Magnesium Hydroxide LIQ 30 ML UDC PO SCH ×3 (02:03→20:35)
[2021-06-18] MEDS: Pantoprazole VIAL 40 MG VIAL IV SCH (08:59)
[2021-06-18] MEDS: Fluticasone NASAL SPRAY 50MCG 16 gm SPRAY BTL BOTH NARES SCH (08:59)
[2021-06-18] MEDS: Potassium Chlor 20 meq TAB.ER PO SCH (09:00)
[2021-06-18] MEDS: Acetaminophen IV 1 GM/100ML 100 ML IV PRN (12:02)
[2021-06-18] MEDS ORDERED: HYDROmorphone 1 MG/1 ML SYRINGE IV SLOW PU PRN (14:26)
[2021-06-18] MEDS: Enoxaparin 40 MG/0.4 ML SYR SUBCUT SCH (14:59)
[2021-06-19] MEDS: Morphine ER 15 mg TAB ** extended release PO SCH (02:46)
[2021-06-19] MEDS ORDERED: Morphine ER 15 mg TAB ** extended release PO SCH (08:00)
[2021-06-19] MEDS: Magnesium Hydroxide LIQ 30 ML UDC PO SCH (08:36)
[2021-06-19] MEDS: Fluticasone NASAL SPRAY 50MCG 16 gm SPRAY BTL BOTH NARES SCH (08:36)
[2021-06-19] MEDS: Potassium Chlor 20 meq TAB.ER PO SCH (08:37)
[2021-06-19] MEDS: Pantoprazole VIAL 40 MG VIAL IV SCH (08:37)
[2021-06-19 14:57] VITALS: BP 146/72
[2021-06-19] MEDS: Enoxaparin 40 MG/0.4 ML SYR SUBCUT SCH (14:59)
== END 2021-06-19 20:58 | disposition home or self-care (01) | DRG 282 ==
LOC: ED 11:17 → EDHOLD 14:45 → SUATTDRO 14:45 → MED 17:39
PROVIDERS: ADMIT Hospitalist; ATTEND Internal Medicine